=== PATIENT | female | born 1980 | race Hispanic/Latino ===

== ENCOUNTER 2018-05-07 12:26 | Emergency (ER) | payer BC ==
[2018-05-07 12:54] LABS: BASOPHILS % (AUTO) 0.2 % (0.0-5.0); HEMATOCRIT 37.8 % (36-48); LYMPHOCYTES % (AUTO) 31.6 % (21.0-51.0); MEAN CORPUSCULAR HEMOGLOBIN 30.9 pg (27.0-33.0); MEAN CORPUSCULAR HGB CONC 33.8 g/dL (32.0-36.0); MEAN CORPUSCULAR VOLUME 91.4 fL (79-99); MONOCYTES % (AUTO) 4.7 % (3.0-13.0); NEUTROPHILS % (AUTO) 62.5 % (40.0-77.0); NUCLEATED RED BLOOD CELLS 0.1 % (0.0-0.19); PLATELET COUNT (AUTO) 239 K/uL (130-400); RED BLOOD CELL COUNT(AUTO) 4.14 MIL/uL (4.00-5.50); RED CELL DISTRIBUTION WIDTH 12.3 % (11.0-15.5); WHITE BLOOD COUNT (AUTO) 6.4 K/uL (4.8-10.8)
[2018-05-07 13:17] LABS: INR 0.95 (0.85-1.15); PARTIAL THROMBOPLASTIN TIME 28.8 SEC (26.3-35.5)
[2018-05-07 13:31] LABS: B-TYPE NATRIURETIC PEPTIDE 5 pg/mL (0-100)
[2018-05-07 13:36] LABS: ALBUMIN 3.7 g/dL (3.5-5.0); BILIRUBIN,TOTAL 0.5 mg/dL (0.2-1.0); CREATININE 0.8 mg/dL (0.5-1.5); POTASSIUM 3.6 mmol/L (3.5-5.1); TOTAL PROTEIN, SERUM 7.6 g/dL (6.0-8.3)
[2018-05-07] MEDS ORDERED: KETOROLAC TROMETHAMINE 30MG/ML ONE (14:46)
== END 2018-05-07 15:46 | disposition home or self-care (01) ==
LOC: EDH 12:26
DX: R07.89 Other chest pain (principal); F41.9 Anxiety disorder, unspecified; Z98.51 Tubal ligation status; Z90.49 Acquired absence of other specified parts of digestive tract
CPT/HCPCS: 36415; 71045; 80053; 82550; 83880; 84484 ×2; 85025; 85610; 85730; 93005 ×2; 96374; 99285; J1885

== ENCOUNTER 2023-11-14 06:35 | Day surgery (SDC) | payer BC ==
[2023-11-10 12:42] LABS: BASOPHILS # (AUTO) 0.02 K/uL (0.00-0.20); BASOPHILS % (AUTO) 0.2 % (0.0-5.0); EOSINOPHILS # (AUTO) 0.24 K/uL (0.00-0.70); EOSINOPHILS % (AUTO) 2.8 % (0.0-8.0); HEMATOCRIT 40.6 % (36-48); IMMATURE GRANULOCYTE ABSOLUTE 0.01 K/uL (0-1); LYMPHOCYTES # (AUTO) 2.3 K/uL (1.0-4.8); LYMPHOCYTES % (AUTO) 26.5 % (21.0-51.0); MEAN CORPUSCULAR HEMOGLOBIN 30.9 pg (27.0-33.0); MEAN CORPUSCULAR VOLUME 93.8 fL (79-99); MONOCYTES # (AUTO) 0.5 K/uL (0.1-1.0); MONOCYTES % (AUTO) 5.8 % (3.0-13.0); NEUTROPHILS # (AUTO) 5.6 K/uL (1.8-7.7); NEUTROPHILS % (AUTO) 64.6 % (40.0-77.0); PLATELET COUNT (AUTO) 327 K/uL (130-400); RED BLOOD CELL COUNT(AUTO) 4.33 MIL/uL (4.00-5.50); RED CELL DISTRIBUTION WIDTH 12.5 % (11.0-15.5); WHITE BLOOD COUNT (AUTO) 8.6 K/uL (4.8-10.8)
[2023-11-10 12:50] LABS: CREATININE 0.7 mg/dL (0.5-1.0); POTASSIUM 3.9 mmol/L (3.5-5.1)
[2023-11-10 12:51] VITALS: BP 143/84; PULSE 78; RESP 18
[2023-11-14] VITALS (16 sets, daily range): BP systolic 97–137; BP diastolic 58–91; PULSE 64–85; RESP 10–18
[~2023-11-14] VITALS: Ht 154.9 cm; Wt 77.1 kg
[~2023-11-14 06:35] MED LIST: FENO145T26 PO; ROSU20TA73 PO
[2023-11-14] MEDS ORDERED: DEXAMETHASONE SOD PHOSPHATE 10MG/ML 1ML VIAL ONE (07:26)
[2023-11-14] MEDS ORDERED: LIDOCAINE PF 100MG/5ML (2%) SYRINGE 5ML ONE (07:26)
[2023-11-14] MEDS ORDERED: PROPOFOL 10 MG/ML 20ML VIAL IV ONE (07:27)
[2023-11-14] MEDS ORDERED: GLYCOPYRROLATE 0.2 MG/ML 5 ML VIAL ONE (07:27)
[2023-11-14] MEDS ORDERED: MIDAZOLAM HCL 1 MG/ML 2ML VIAL ONE (07:27)
[2023-11-14] MEDS ORDERED: ONDANSETRON 4MG INJ ONE (07:27)
[2023-11-14] MEDS ORDERED: SUCCINYLCHOLINE CHLORIDE 20 MG/ML 10 ML VIAL ONE (07:27)
[2023-11-14] MEDS ORDERED: NEOSTIGMINE METHYLSULFATE 1MG/ML IV ONE (07:27)
[2023-11-14] MEDS ORDERED: ROCURONIUM BROMIDE 10MG/1ML 5ML VL ONE (07:27)
[2023-11-14] MEDS ORDERED: FENTANYL CITRATE PF 50 MCG/1 ML 2ML VIAL ONE ×2 (07:28→08:23)
[2023-11-14] MEDS: CEFAZOLIN SODIUM 2 GM VIAL ONE (07:31)
[2023-11-14] MEDS: LACTATED RINGERS 1000ML 1,000 ML IV ONE (07:31)
[2023-11-14] MEDS ORDERED: OXYMETAZOLINE HCL SPRAY 15 ML BOTTLE ONE (07:32)
[2023-11-14] MEDS: KETOROLAC 30MG VIAL (30MG/ML) ONE (09:28)
[2023-11-14] MEDS: ACETAMINOPHEN 1,000 MG/100 ML VIAL IV ONE (09:35)
[2023-11-14] MEDS: ONDANSETRON 4MG INJ ONE (09:36)
[2023-11-14] MEDS: MEPERIDINE-PF 25 MG/ML SYG ONE (09:37)
== END 2023-11-14 10:30 | disposition home or self-care (01) ==
LOC: DAH 06:35
PROVIDERS: ATTEND Surgery
DX: L72.3 Sebaceous cyst (principal); D36.10 Benign neoplasm of peripheral nerves and autonomic nervous system, unspecified; E66.9 Obesity, unspecified; Z68.31 Body mass index [BMI] 31.0-31.9, adult; Z90.49 Acquired absence of other specified parts of digestive tract; Z98.51 Tubal ligation status
CPT/HCPCS: 80048; 85025; 81025 ×2; 36415; 64784; 88304; A6260; A4663; J7120 ×2; A4452; J3010 ×2; J1100; J0330; J3490 ×2; J2001; J2250; J2704; J2405 ×2; J1885; J2710; J2175; J0690; G0168; A4930; A4215; A4223; A4222; A4221